=== PATIENT | female | born 1980 | race American Indian/Alaskan Native ===

== ENCOUNTER 2019-02-26 11:01 | Emergency (ER) | payer SELFPAY ==
--- NOTE | 2019-02-26 11:41 | Event Note ---
ED Screening Note Date of service: 02/26/19 Time: 11:38 ED Screening Note: 38 y o female presents with left sided flank pain radiating to back x 3 days vomitting today denies vag d/c, fever, diar No hx of kidney stones Hx of hysterectomy This initial assessment/diagnostic orders/clinical plan/treatment(s) is/are subject to change based on patients health status, clinical progression and re- assessment by fellow clinical providers in the ED. Further treatment and workup at subsequent clinical providers discretion. Patient/guardian urged not to elope from the ED as their condition may be serious if not clinically assessed and managed. Initial orders include: ua
[2019-02-26 12:07] LABS: Bilirubin,Urine NEG (Negative); Blood,Urine MOD (Negative); Color,Urine Yellow (Yellow); Mucus,Urine FEW /HPF; Protein,Urine <15 mg/dL mg/dL (Negative)
[2019-02-26] MEDS ORDERED: ONDANSETRON 4 MG/2 ML INJ IV STA (12:26)
[2019-02-26] MEDS ORDERED: HYOSCYAMINE SUBL 0.125 MG TAB SL ONE (12:26)
[2019-02-26] MEDS ORDERED: KETOROLAC 30 MG/1 ML INJ IV STA (12:26)
[2019-02-26 13:10] LABS: Basophils # (Auto) 0.1 K/mm3 (0.0-0.1); Eosinophils # (Auto) 0.2 K/mm3 (0.0-0.4); Eosinophils % (Auto) 3.1 % (0.0-4.3); Hematocrit 44.8 % (30.3-42.9); Hemoglobin 15.3 gm/dl (10.1-14.3); Lymphocytes # (Auto) 2.3 K/mm3 (1.2-5.4); Lymphocytes % (Auto) 33.2 % (13.4-35.0); Mean Corpuscular HGB Conc 34 % (30-34); Mean Corpuscular Volume 96 fl (79-97); Monocytes # (Auto) 0.5 K/mm3 (0.0-0.8); Monocytes % (Auto) 7.7 % (0.0-7.3); Platelet Count 236 K/mm3 (140-440); Red Blood Count 4.65 M/mm3 (3.65-5.03); Red Cell Distribution Width 12.8 % (13.2-15.2)
[2019-02-26 13:35] LABS: Alanine Aminotransferase 11 units/L (7-56); Albumin 4.6 g/dL (3.9-5); BUN/Creatinine Ratio 14; Blood Urea Nitrogen 7 mg/dL (7-17); Calcium 9.3 mg/dL (8.4-10.2); Hemolysis Index 17
--- NOTE | 2019-02-26 13:40 | XRay Report ---
ABDOMEN 2 VIEW(S) WITH PA CHEST INDICATION / CLINICAL INFORMATION: Abdominal pain. COMPARISON: None available. FINDINGS: CHEST X-RAY: No acute findings. TUBES / LINES: None. BOWEL GAS PATTERN/EXTRALUMINAL GAS: No significant abnormality. No pneumatosis or free air. Normal vo lume of stool in the colon. ADDITIONAL FINDINGS: No significant additional findings. IMPRESSION: 1. No significant abnormality. Signer Name: Gerardo Russell MD Signed: 02/26/2019 1:36 PM Workstation Name: [email or web address]
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
[2019-02-26 16:14] VITALS: BP 153/80
== END 2019-02-26 16:13 | disposition home or self-care (01) ==
LOC: ED 11:01
DX: R10.30 Lower abdominal pain, unspecified (principal); R11.2 Nausea with vomiting, unspecified; F17.200 Nicotine dependence, unspecified, uncomplicated; Z79.1 Long term (current) use of non-steroidal anti-inflammatories (NSAID); Z79.899 Other long term (current) drug therapy; Z98.51 Tubal ligation status; Z90.710 Acquired absence of both cervix and uterus
CPT/HCPCS: 36415; 74022; 80053; 81001; 83690; 85025; 96374; 96375; 99284; J1885; J2405